=== PATIENT | female | born 1985 | race Caucasian/White ===

== ENCOUNTER 2017-03-31 21:27 | Observation (INO) | payer BC, MEDICAID ==
[2017-03-31] MEDS: OXYCODONE-ACETAMINOPHEN 5-325 MG TABLET PO PRN (22:18)
[2017-03-31] MEDS: ONDANSETRON 4 MG TAB.RAPDIS PO PRN (22:26)
[2017-03-31] MEDS ORDERED: CEFTRIAXONE 2 GM/D5W RTU 2 GM/50 ML RTUPB IV ONE ×2 (22:30→22:40)
[2017-03-31 22:41] LABS: ABSOLUTE BASOPHILS # (AUTO) 0.1 10^3/uL (0.0-0.2); ABSOLUTE EOSINOPHILS # (AUTO) 0.1 10^3/uL (0.0-0.6); ABSOLUTE LYMPHOCYTES (AUTO) 1.5 10^3/uL (0.5-4.7); ABSOLUTE MONOCYTES (AUTO) 0.7 10^3/uL (0.1-1.4); ABSOLUTE NEUT (AUTO) 11.3 10^3/uL (1.7-8.2); BASOPHILS % (AUTO) 0.6 % (0-2); EOSINOPHILS % (AUTO) 0.5 % (0-6); HEMATOCRIT 39.8 % (36.0-47.0); HEMOGLOBIN 13.7 g/dL (12.0-15.5); HGB HCT DIFFERENCE 1.3; MEAN CORPUSCULAR HEMOGLOBIN 27.6 pg (27.0-33.4); MEAN CORPUSCULAR HGB CONC 34.4 g/dL (32.0-36.0); MEAN CORPUSCULAR VOLUME 80 fl (80-97); MONOCYTES % (AUTO) 5.2 % (3-13); RED BLOOD COUNT 4.97 10^6/uL (3.72-5.28); RED CELL DISTRIBUTION WIDTH 14.8 % (11.5-14.0); SEGMENTED NEUTROPHILS % (AUTO) 82.7 % (42-78); WHITE BLOOD COUNT 13.7 10^3/uL (4.0-10.5)
[2017-03-31 23:01] LABS: ANION GAP 12 (5-19); BLOOD UREA NITROGEN 10 mg/dL (7-20); CALCIUM 9.3 mg/dL (8.4-10.2); CARBON DIOXIDE 19 mmol/L (22-30); CHLORIDE 106 mmol/L (98-107); CREATININE RESULT 0.92 mg/dL (0.52-1.25); GLUCOSE 103 mg/dL (75-110); POTASSIUM 3.9 mmol/L (3.6-5.0); SODIUM 136.7 mmol/L (137-145)
[2017-03-31 23:17] LABS: APPEARANCE,URINE SLIGHTLY-CLOUDY; BILIRUBIN,URINE NEGATIVE (NEGATIVE); GLUCOSE, URINE NEGATIVE (NEGATIVE); KETONES,URINE TRACE mg/dL (NEGATIVE); LEUKOCYTE ESTERASE,URINE NEGATIVE (NEGATIVE); NITRITE,URINE NEGATIVE (NEGATIVE); PROTEIN,URINE NEGATIVE (NEGATIVE); URINE SPECIFIC GRAVITY 1.031; UROBILINOGEN,URINE NEGATIVE mg/dL (<2.0)
[2017-03-31] MEDS: ZOLPIDEM TARTRATE 5 MG TABLET PO PRN (23:59)
[2017-04-01] MEDS: OXYCODONE-ACETAMINOPHEN 5-325 MG TABLET PO PRN ×4 (02:19→20:56)
--- NOTE | 2017-04-01 08:45 | PDOC PROGRESS REPORT ---
Subjective Subjective:: Pt reporting still having moderate CVA pain, no n/v No vaginal bleeding Physical Exam - Physical Exam Vital Signs: Temp Pulse Resp BP Pulse Ox 98.6 F 86 16 114/78 97 04/01/17 04:04 04/01/17 04:04 04/01/17 04:04 04/01/17 04:04 04/01/17 04:04 Intake & Output 03/31/17 04/01/17 04/02/17 06:59 06:59 06:59 Weight 99.6 kg General appearance: PRESENT: no acute distress, cooperative, well-nourished GI/Abdominal exam: PRESENT: normal bowel sounds, soft - Moderate Right CVA tenderness, tenderness Result Laboratory Results: 03/31/17 22:20 03/31/17 22:20 03/31/17 03/31/17 03/31/17 22:20 22:20 22:20 WBC 13.7 H RBC 4.97 Hgb 13.7 Hct 39.8 MCV 80 MCH 27.6 MCHC 34.4 RDW 14.8 H Plt Count 219 Seg Neutrophils % 82.7 H Lymphocytes % 11.0 L Monocytes % 5.2 Eosinophils % 0.5 Basophils % 0.6 Absolute Neutrophils 11.3 H Absolute Lymphocytes 1.5 Absolute Monocytes 0.7 Absolute Eosinophils 0.1 Absolute Basophils 0.1 Sodium 136.7 L Potassium 3.9 Chloride 106 Carbon Dioxide 19 L Anion Gap 12 BUN 10 Creatinine 0.92 Est GFR ( Amer) > 60 Est GFR (Non-Af Amer) > 60 Glucose 103 Lactic Acid 0.9 Calcium 9.3 Urine Color Urine Appearance Urine pH Ur Specific Waterfall Urine Protein Urine Glucose (UA) Urine Ketones Urine Blood Urine Nitrite Ur Leukocyte Esterase Urine WBC (Auto) Urine RBC (Auto) 03/31/17 22:42 WBC RBC Hgb Hct MCV MCH MCHC RDW Plt Count Seg Neutrophils % Lymphocytes % Monocytes % Eosinophils % Basophils % Absolute Neutrophils Absolute Lymphocytes Absolute Monocytes Absolute Eosinophils Absolute Basophils Sodium Potassium Chloride Carbon Dioxide Anion Gap BUN Creatinine Est GFR ( Amer) Est GFR (Non-Af Amer) Glucose Lactic Acid Calcium Urine Color YELLOW Urine Appearance SLIGHTLY-CLOUDY Urine pH 5.0 Ur Specific Waterfall 1.031 Urine Protein NEGATIVE Urine Glucose (UA) NEGATIVE Urine Ketones TRACE H Urine Blood NEGATIVE Urine Nitrite NEGATIVE Ur Leukocyte Esterase NEGATIVE Urine WBC (Auto) 2 Urine RBC (Auto) 1 Assessment & Plan - Diagnosis (1) Kidney infection in mother during first trimester of Is this a current diagnosis for this admission?: Yes - Time Time Spent with patient: Less than 15 minutes Medications reviewed and adjusted accordingly: Yes Anticipated discharge: Home Within: within 48 hours - Continue IV Abx Recheck cbc in AM, await urine Cx results
[2017-04-01] MEDS: CEFTRIAXONE 2 GM/D5W RTU 2 GM/50 ML RTUPB IV SCH (10:04)
[2017-04-01] MEDS: ONDANSETRON 4 MG TAB.RAPDIS PO PRN ×2 (13:38→21:50)
[2017-04-02] MEDS: ZOLPIDEM TARTRATE 5 MG TABLET PO PRN (02:17)
[2017-04-02] MEDS: CEFTRIAXONE 2 GM/D5W RTU 2 GM/50 ML RTUPB IV SCH (10:24)
[2017-04-02 14:29] VITALS: BP 115/70
--- NOTE | 2017-04-02 22:37 | DISCHARGE SUMMARY E ---
Discharge Summary NAME: GHAZALA MIJARES : 1985 AGE: 31Y ADMITTED: 03/31/2017 DISCHARGED: 04/02/2017 INDICATION FOR ADMISSION: A 6-week intrauterine with pyelonephritis. HOSPITAL COURSE: The patient is a 31-year-old female admitted at 6 weeks' gestation with pyelonephritis. She received Rocephin as an outpatient, but her flank pain had actually increased despite this. She presented with nausea and increasing flank pain to the hospital. During the course of her stay she was placed on IV Rocephin. During the course of her stay her flank pain gradually resolved and by the time of discharge she had no flank pain and felt well. She remained afebrile throughout her stay. DISCHARGE MEDICATIONS: Keflex 500 mg 1 p.o. q.i.d. The patient has home prescription for this already. DISCHARGE INSTRUCTIONS: She was advised to push p.o. fluids. She will follow up in 2 weeks in clinic, sooner should problems arise. DICTATING PHYSICIAN: TITA CURIEL M.D. [id number] PHY#: [id number] ID: [id number] JOB#: [id number] ACCT: [id number] cc:TITA CURIEL M.D. >
== END 2017-04-02 14:45 | disposition home or self-care (01) ==
LOC: 2S 21:27 → INTOOBSV 21:27
PROVIDERS: ADMIT Obstetrics & Gynecology; ATTEND Obstetrics & Gynecology
DX: O23.01 Infections of kidney in pregnancy, first trimester (principal); Z3A.01 Less than 8 weeks gestation of pregnancy
CPT/HCPCS: 36415; 87040; 87086; 85025; 80048; 81001; 83605; G0378 ×3; G0379; S0119 ×2; J3490; J0696 ×3

== ENCOUNTER → 2017-05-15 | Outpatient (CLI) | payer BC, MEDICAID | LOC: LAB 16:09 | PROVIDERS: ATTEND Student in an Organized Health Care Education/Training Program | DX: J02.0 Streptococcal pharyngitis (principal) | CPT/HCPCS: 87880 ==

== ENCOUNTER 2017-11-20 22:48 | Inpatient (IN) | payer BC, MEDICAID ==
[2017-11-20 23:32] LABS: APPEARANCE,URINE CLOUDY; BILIRUBIN,URINE NEGATIVE (NEGATIVE); GLUCOSE, URINE NEGATIVE (NEGATIVE); KETONES,URINE TRACE mg/dL (NEGATIVE); LEUKOCYTE ESTERASE,URINE LARGE (NEGATIVE); NITRITE,URINE NEGATIVE (NEGATIVE); PROTEIN,URINE 30 mg/dL (NEGATIVE); URINE SPECIFIC GRAVITY 1.028
[2017-11-20 23:37] LABS: COLOR,URINE YELLOW
[2017-11-20] MEDS ORDERED: OXYCODONE-ACETAMINOPHEN 5-325 MG TABLET PO ONE (23:41)
[2017-11-20] MEDS ORDERED: RINGERS SOLUTION,LACTATED 1,000 ML IV ONE (23:44)
[2017-11-20] MEDS ORDERED: OXYCODONE-ACETAMINOPHEN 5-325 MG TABLET ONE (23:48)
[2017-11-20 23:59] LABS: URINE AMPHETAMINES SCREEN NEGATIVE; URINE BARBITURATES SCREEN NEGATIVE; URINE BENZODIAZEPINES SCREEN NEGATIVE; URINE COCAINE SCREEN NEGATIVE; URINE MARIJUANA (THC) SCREEN NEGATIVE; URINE METHADONE SCREEN NEGATIVE; URINE PHENCYCLIDINE SCREEN NEGATIVE
[2017-11-21 00:24] LABS: HEMATOCRIT 33.3 % (36.0-47.0); HEMOGLOBIN 11.3 g/dL (12.0-15.5); MEAN CORPUSCULAR HEMOGLOBIN 29.5 pg (27.0-33.4); MEAN CORPUSCULAR VOLUME 87 fl (80-97); PLATELET COUNT 134 10^3/uL (150-450); RED BLOOD COUNT 3.83 10^6/uL (3.72-5.28); RED CELL DISTRIBUTION WIDTH 15.6 % (11.5-14.0); WHITE BLOOD COUNT 9.6 10^3/uL (4.0-10.5)
[2017-11-21 00:52] LABS: ABSOLUTE LYMPHOCYTES# (MANUAL) 0.3 10^3/uL (0.5-4.7); ABSOLUTE MONOCYTES # (MANUAL) 0.2 10^3/uL (0.1-1.4); ABSOLUTE NEUTROPHILS# (MANUAL) 9.1 10^3/uL (1.7-8.2); BAND NEUTROPHILS % (MANUAL) 2 % (3-5); BASOPHILS % (MANUAL) 0 % (0-2); EOSINOPHILS % (MANUAL) 0 % (0-6); LYMPHOCYTES % (MANUAL) 3 % (13-45); MONOCYTES % (MANUAL) 2 % (3-13); SEGMENTED NEUTROPHILS % (MAN) 93 % (42-78); TOTAL CELLS COUNTED 100
[2017-11-21 00:54] LABS: ANISOCYTOSIS SLIGHT; OVALOCYTES SLIGHT; PLATELET COMMENT ADEQUATE; POIKILOCYTOSIS SLIGHT; TEAR DROP CELLS SLIGHT; TOXIC GRANULATION SLIGHT
--- NOTE | 2017-11-21 01:12 | Admission Physical ---
Datetime Report Generated by CPN: 11/21/2017 01:11 CURRENT ADMISSION Chief Complaint: Other Chief Complaint Other: Large baby with efw 4400. She is concerned about shoulder dystocia and would prefer a c section over labor or induction. She reports having problems with delivery of the shoulders of a smaller baby. Indication for Induction: Not Applicable Admit Impression : Term, Intrauterine Admit Plan: Admit to Unit; Initiate Section Protocol ALLERGIES Medication Allergies: No Medication Allergies: No Known Allergies (12/28/2015) Latex: No Latex Allergies OBSTETRICAL HISTORY EDC: 11/26/2017 00:00 : 4 Para: 2 Term: 2 : 0 SAB: 1 IAB: 0 Ectopic: 0 Livin Cesareans: 0 VBACs: 0 Multiple Births: 0 PHYSICAL EXAM General: Normal HEENT: Normal Neurologic: Normal Thyroid: Normal Heart: Normal Lungs: Normal Breast: Deferred Back: Normal Abdomen: Normal Genitourinary Exam: Normal Extremities: Normal DTRs: Normal Pelvic Type: Adequate Vital Signs: Reviewed VAGINAL EXAM Dilatation: 1 Effacement: 25 Station: -4 MEMBRANES Pooling: Negative Membranes: Intact FETUS A EGA: 39.2 Monitoring: External US FHR- Baseline: 140 Variability: Moderate 6-25bpm FHR Category: Category I Estimated Weight (gm): 4400 Presentation: Vertex Admit Comment: She would prefer a c section over induction or natural labor. We will plan for the am. INFORMED CONSENT Signature: with User ID: [email or web address]
[2017-11-21] MEDS ORDERED: PROMETHAZINE HCL INJ 25 MG/1 ML VIAL IV ONE (02:38)
[2017-11-21] MEDS ORDERED: NALBUPHINE HCL INJ 10 MG/1 ML AMPULE INJ ONE (02:38)
[2017-11-21] MEDS ORDERED: NALBUPHINE HCL INJ 10 MG/1 ML AMPULE ONE (02:44)
[2017-11-21] MEDS ORDERED: PROMETHAZINE HCL INJ 25 MG/1 ML VIAL ONE (02:44)
[2017-11-21] MEDS ORDERED: CEFAZOLIN SODIUM 2 GM in DEXTROSE 5%-WATER 50 ML IV PRN (07:00)
[2017-11-21] MEDS ORDERED: OXYTOCIN 10 UNIT/ML VIAL ONE (08:11)
[2017-11-21] MEDS ORDERED: FENTANYL CITRATE INJ/PF 100 MCG/2 ML AMPUL ONE (08:11)
[2017-11-21] MEDS ORDERED: LIDOCAINE 2% INJ-PF (20 MG/ML) 10 ML AMPUL ONE (08:11)
[2017-11-21] MEDS ORDERED: PROPOFOL INJ 200 MG/20 ML VIAL IV ONE (08:12)
[2017-11-21] MEDS ORDERED: MIDAZOLAM 2 MG/2 ML INJ ONE (08:12)
[2017-11-21] MEDS ORDERED: ACETAMINOPHEN 100 ML IV ONE (08:12)
[2017-11-21] MEDS ORDERED: ONDANSETRON HCL INJ/PF 4 MG/2 ML SDV ONE (08:12)
[2017-11-21] MEDS ORDERED: BUPIVACAINE HCL/DEX-WATER/PF 15 MG/2 ML AMPULE ONE (08:13)
[2017-11-21] MEDS ORDERED: CEFAZOLIN 1 GM/D5W RTU 2 GM/100 ML RTUPB IV ONE (08:13)
[2017-11-21] MEDS ORDERED: OXYTOCIN/NORMAL SALINE 20 UNIT/1,000 ML RTUINJ ONE (08:17)
[2017-11-21] MEDS ORDERED: DIPH/PERTUSS(ACELL)/TETANUS VAC/PF 0.5 ML SYR (>=10YO) IM PRN (09:31)
[2017-11-21] MEDS ORDERED: MEASLES,MUMPS&RUBELLA VACC/PF 0.5 ML VIAL SUBCUT PRN (09:31)
[2017-11-21] MEDS ORDERED: OXYTOCIN/NORMAL SALINE 20 UNIT/1,000 ML RTUINJ IV PRN (09:31)
[2017-11-21] MEDS ORDERED: ACETAMINOPHEN 325 MG TABLET PO PRN (09:31)
[2017-11-21] MEDS ORDERED: PROMETHAZINE HCL INJ 25 MG/1 ML VIAL IV PRN ×3 (09:31→09:49)
[2017-11-21] MEDS ORDERED: SIMETHICONE 80 MG TAB.CHEW PO PRN (09:31)
[2017-11-21] MEDS ORDERED: (PENDING PHARMACY ID) (Acetaminophen [Tylenol Extra Strength 500 Mg Tablet] 1,000 MG) PO PRN (09:32)
[2017-11-21] MEDS ORDERED: LIDOCAINE 1% INJ-PF (10 MG/ML) 30 ML SDV INJ ONE (09:33)
[2017-11-21] MEDS ORDERED: DIPHENHYDRAMINE HCL 50 MG/ML VIAL IV PRN (09:49)
[2017-11-21] MEDS ORDERED: MORPHINE SULFATE 10 MG/ML INJ IV PRN (09:49)
[2017-11-21] MEDS ORDERED: MEPERIDINE HCL/PF INJ 25 MG/1 ML DISP.SYRIN IV PRN (09:49)
[2017-11-21] MEDS ORDERED: FENTANYL CITRATE INJ/PF 100 MCG/2 ML AMPUL IV PRN ×3 (09:49)
--- NOTE | 2017-11-21 10:09 | OPERATIVE REPORT E ---
Operative Report NAME: GHAZALA MIJARES : 1985 AGE: 32Y DATE OF SURGERY: 11/21/2017 ROOM: LR200 PREOPERATIVE DIAGNOSIS: IUP at term with prior history of shoulder dystocia. POSTOPERATIVE DIAGNOSIS: IUP at term with prior history of shoulder dystocia. OPERATION: Primary low transverse , delivery of a viable male, 9 pounds 7 ounces, 8 and 9 Apgars. SURGEON: Sigrid NAJERA M.D. ANESTHESIA: Spinal ESTIMATED BLOOD LOSS: Approximately 1500 mL. TISSUE REMOVED OR ALTERED: Placenta. PROCEDURE: The patient was placed in the supine position, rolled on her right side, prepped and draped in sterile fashion. A Pfannenstiel incision was made. The incision extended through the subcutaneous tissue and fascia with sharp dissection. Fascia sharply divided. Rectus muscle bluntly and sharply divided. Parietal peritoneum was entered with sharp dissection. The uterus was nicked in the midline and extended bilaterally. The was delivered through the uterine and abdominal incision. Nose and mouth suctioned with bulb syringe. Cord was clamped and infant was passed from the table. Placenta was manually extracted. Uterus closed in 2 layers using 0 Vicryl, first in a running stitch, then a second a Lembert stitch imbricating the first layer. There was a mild amount of bleeding noted on the left and was controlled with a [id number] suture of 0 Vicryl. The fascia was closed with 0 Vicryl and the skin was closed with subcuticular absorbable jill. Patient tolerated it well, was taken to recovery in good condition and infant to the nursery in good condition. DICTATING PHYSICIAN: Sigrid NAJERA M.D. [id number] PHY#: [id number] ID: [id number] JOB#: [id number] ACCT: [id number] cc:Sigrid NAJERA M.D. >
[2017-11-21] MEDS: HYDROMORPHONE HCL INJ/PF 2 MG/ML AMPULE ONE ×2 (10:50→11:56)
[2017-11-21] MEDS: DOCUSATE SODIUM 100 MG CAPSULE PO SCH ×2 (13:14→17:29)
[2017-11-21] MEDS: PRENATAL VITAMIN W DHA CAPSULE PO SCH (13:14)
[2017-11-21] MEDS: OXYCODONE-ACETAMINOPHEN 5-325 MG TABLET PO PRN ×2 (13:28→19:16)
[2017-11-21] MEDS: MORPHINE SULFATE 10 MG/ML INJ IM PRN (15:25)
[2017-11-21] MEDS ORDERED: RINGERS SOLUTION,LACTATED 1,000 ML IV PRN (20:06)
[2017-11-21] MEDS: CEFTRIAXONE SODIUM 1,000 MG in DEXTROSE 5%-WATER 50 ML IV SCH (22:33)
[2017-11-22] MEDS: OXYCODONE-ACETAMINOPHEN 5-325 MG TABLET PO PRN ×6 (00:10→22:44)
[2017-11-22] MEDS: MORPHINE SULFATE 10 MG/ML INJ IM PRN (04:25)
[2017-11-22 06:26] LABS: HEMATOCRIT 28.7 % (36.0-47.0); HEMOGLOBIN 10.1 g/dL (12.0-15.5); MEAN CORPUSCULAR VOLUME 86 fl (80-97); PLATELET COUNT 122 10^3/uL (150-450); RED BLOOD COUNT 3.35 10^6/uL (3.72-5.28); RED CELL DISTRIBUTION WIDTH 15.8 % (11.5-14.0); WHITE BLOOD COUNT 8.6 10^3/uL (4.0-10.5)
[2017-11-22] MEDS: CEFTRIAXONE SODIUM 1,000 MG in DEXTROSE 5%-WATER 50 ML IV SCH ×2 (09:22→22:22)
[2017-11-22] MEDS: DOCUSATE SODIUM 100 MG CAPSULE PO SCH ×2 (09:23→17:12)
[2017-11-22] MEDS: PRENATAL VITAMIN W DHA CAPSULE PO SCH (09:23)
[2017-11-22 09:41] LABS: A TYPE INFLUENZA AG NEGATIVE (NEGATIVE); B INFLUENZA AG NEGATIVE (NEGATIVE)
--- NOTE | 2017-11-22 12:08 | PDOC PROGRESS REPORT ---
Subjective-OB Progress Note for:: 11/22/17 Subjective: s/p c/s day #1, Denies concerns, states lochia is moderately stable, pain is well controlled, love to gravity, still achy . Physical Exam (OB) Vital Signs: Temp Pulse Resp BP Pulse Ox 98.8 F 134 H 20 111/75 98 11/22/17 07:55 11/22/17 07:55 11/22/17 07:55 11/22/17 07:55 11/22/17 07:55 Intake & Output 11/21/17 11/22/17 11/23/17 06:59 06:59 06:59 Intake Total 3568 1240 Output Total 5752 Balance -2184 1240 Weight 120.6 kg - PIH/Pre-Eclampsia DTR's: 2 + Clonus: Negative Headache: Absent Epigastric Pain: No Visual Changes: No - Dressing Removed: No Incision: Dressing Closure Type: Sutures - Lochia Lochia Amount: Scant < 10 ml Lochia Color: Rubra/Red - Abdomen Description: Tender, Soft, Round Hernia Present: No Fundal Description: Firm, Midline Fundal Height: u/u - u/2 Objective-Diagnostic Laboratory: 11/22/17 06:10 11/22/17 06:10 WBC 8.6 RBC 3.35 L Hgb 10.1 L Hct 28.7 L MCV 86 MCH 30.0 MCHC 35.0 RDW 15.8 H Plt Count 122 L Assessment and Plan(PN) - Assessment and Plan (1) delivery delivered Is this a current diagnosis for this admission?: Yes Plan: routine postop care (2) Gestational hypertension with significant proteinuria, delivered Is this a current diagnosis for this admission?: Yes Plan: monitor (3) Kidney infection in mother during first trimester of Is this a current diagnosis for this admission?: Yes Plan: monitor continue abx - Time Spent with Patient Time with patient: Less than 15 minutes Critical Time spent with patient: Less than 15 minutes Medications reviewed and adjusted accordingly: Yes - Disposition Anticipated Discharge: Home Within: within 24 hours
[2017-11-22] MEDS ORDERED: IBUPROFEN 800 MG TABLET PO ONE (21:15)
[2017-11-23] MEDS: OXYCODONE-ACETAMINOPHEN 5-325 MG TABLET PO PRN ×2 (02:54→07:29)
[2017-11-23] MEDS: IBUPROFEN 800 MG TABLET PO SCH ×2 (06:43→11:48)
--- NOTE | 2017-11-23 08:27 | PDOC DISCHARGE SUMMARY ---
Final Diagnosis Discharge Date: 11/23/17 - Final Diagnosis (1) delivery delivered Is this a current diagnosis for this admission?: Yes (2) Gestational hypertension with significant proteinuria, delivered Is this a current diagnosis for this admission?: Yes (3) Kidney infection in mother during first trimester of Is this a current diagnosis for this admission?: Yes Discharge Data - Discharge Medication Prescriptions: Oxycodone HCl/Acetaminophen [Percocet 5-325 mg Tablet] 2 tab PO Q4HP PRN #30 tablet PRN Reason: Docusate Sodium [Colace 100 mg Capsule] 100 mg PO BID #60 capsule Ferrous Sulfate 325 mg PO BID #60 tablet. Ibuprofen [Motrin 800 mg Tablet] 800 mg PO Q6 #60 tablet Home Medications: Docusate Sodium [Colace 100 mg Capsule] 100 mg PO BID #60 capsule 11/23/17 Ferrous Sulfate 325 mg PO BID #60 tablet. 11/23/17 Ibuprofen [Motrin 800 mg Tablet] 800 mg PO Q6 #60 tablet 11/23/17 Oxycodone HCl/Acetaminophen [Percocet 5-325 mg Tablet] 2 tab PO Q4HP PRN #30 tablet 11/23/17 Gestational Age: 39 Reason(s) for Admission: Ceasarean Section-Primary Procedures: NST Intrapartum Procedure(s): : Low Cervical, Transverse - Decker Data Baby 1 Male at 1 minute: 8 at 5 minutes: 9 Weight: 4.281 kg Home with Mother: Yes Complications: No - Diagnosis Test Laboratory: Temp Pulse Resp BP Pulse Ox 98.3 F 115 H 18 126/69 H 97 11/23/17 00:08 11/22/17 23:46 11/22/17 23:46 11/22/17 23:46 11/22/17 23:46 11/20/17 11/21/17 11/22/17 22:59 00:02 06:10 RBC 3.83 3.35 L Hgb 11.3 L 10.1 L Hct 33.3 L 28.7 L Urine Opiates Screen NEGATIVE - Discharge information/Instructions Discharge Activity: Activity As Tolerated, Pelvic Rest, No tub bath Discharge Diet: Regular Disposition: HOME, SELF-CARE Follow up with: [facility] in: 1, Weeks
[2017-11-23 08:35] VITALS: BP 136/84
[2017-11-23] MEDS: PRENATAL VITAMIN W DHA CAPSULE PO SCH (09:30)
[2017-11-23] MEDS: DOCUSATE SODIUM 100 MG CAPSULE PO SCH (09:30)
== END 2017-11-23 11:50 | disposition home or self-care (01) | DRG 766 ==
LOC: LC 22:48 → LR 11-21 02:08 → 2S 11-21 11:40
PROVIDERS: ADMIT Obstetrics & Gynecology Gynecology; ATTEND Obstetrics & Gynecology Gynecology
PROC: 4A1HXCZ Monitoring of Products of Conception, Cardiac Rate, External Approach (ICD-10-PCS; 2017-11-21)
PROC: 10D00Z1 Extraction of Products of Conception, Low, Open Approach (ICD-10-PCS; principal; 2017-11-21 08:15)
DX: O36.63X0 Maternal care for excessive fetal growth, third trimester, not applicable or unspecified (principal); O14.94 Unspecified pre-eclampsia, complicating childbirth; Z3A.39 39 weeks gestation of pregnancy; Z37.0 Single live birth; Z87.59 Personal history of other complications of pregnancy, childbirth and the puerperium
CPT/HCPCS: 1961; 36415; 80307; 81005; 85025; 85027; 86850; 86900; 86901; 87070; 87804; 87880; J0131; J0690; J0696; J1170; J2250; J2270; J2300; J2405; J2550; J2590; J2704; J3010; J3490; J7120